=== PATIENT | female | born 1960 | race Caucasian/White ===

== ENCOUNTER 2020-12-12 10:53 | Emergency (ER) | payer OTHER ==
[~2020-12-12 10:53] MED LIST: ADMELOG SO100 UNIT/1 SC; ADMELOG SO100 UNIT/1 SQ; ALDACTONE 25MG25 MG PO; ALL DAY ALLERGY10 M2 PO; ASPIR 8181 MG PO; ASPIRIN CHEWABL81 MG PO; ASPIRIN81 MG PO; BASAGLAR K100 UNIT/1 SQ; BASAGLAR SQ; BUMETANIDE1 MG PO; CEFPODOXIME PR100 MG PO; CELEXA 20MG TAB20 MG PO; D3-20002000 UNIT PO; DYAZIDE 37.5-21 EACH PO; FARXIGA10 MG PO; GLIMEPIRIDE4 MG PO; GLUCOPHAGE 500500 MG PO; GLUCOPHAGE1000 MG PO; IMDUR ER TAB 3030 MG PO; IMDUR ER TAB 6060 MG PO; JARDIANCE10 MG PO; LEVOCETIRIZINE D5 MG PO; LIPITOR TAB 2020 MG PO; LISINOPRIL5 MG PO; MAXZIDE 37.5 M1 EACH PO; METOPROLOL SUC100 MG PO; NEURONTIN600 MG PO; NITROGLYCERIN0.4 MG SL; NORVASC 5 MG TAB5 MG PO; OMEPRAZOLE40 MG PO; PLAVIX75 MG PO; PRINIVIL5 MG PO; RANEXA500 MG PO; RANITIDINE HCL300 M1 PO; SINGULAIR10 MG PO; STEGLATRO5 MG PO; TOPROL XL50 MG PO; TRULICITY0.75 MG/0. SQ; ZOFRAN4 MG PO
== END 2020-12-12 16:30 | disposition home or self-care (01) ==
LOC: ER1 10:53
DX: S09.90XA Unspecified injury of head, initial encounter (principal); M54.5 Low back pain; M25.532 Pain in left wrist; M79.641 Pain in right hand; M79.642 Pain in left hand; E11.9 Type 2 diabetes mellitus without complications; I10 Essential (primary) hypertension; I25.10 Atherosclerotic heart disease of native coronary artery without angina pectoris; E78.00 Pure hypercholesterolemia, unspecified; Z95.1 Presence of aortocoronary bypass graft; Z79.82 Long term (current) use of aspirin; Z79.899 Other long term (current) drug therapy; W01.0XXA Fall on same level from slipping, tripping and stumbling without subsequent striking against object, initial encounter; Y92.009 Unspecified place in unspecified non-institutional (private) residence as the place of occurrence of the external cause
CPT/HCPCS: 70450; 71045; 72131; 73110; 73130; 99284

== ENCOUNTER 2021-01-20 00:48 | Observation (INO) | payer OTHER ==
[~2021-01-20] VITALS: Ht 149.9 cm; Wt 83.5 kg
[2021-01-20 01:11] LABS: HEMOGLOBIN 12.6 gm/dl (12.3-15.3); RED BLOOD COUNT 3.86 M/UL (4.00-5.10); WHITE BLOOD COUNT 5.2 K/UL (4.5-11.0)
--- NOTE | 2021-01-20 03:28 | NUR ---
PATIENT DOES NOT KNOW HER HOME MEDICATIONS OR BROUGHT A LIST WITH HER. PATIENT STATES HER DAUGHTER IS BRINGING MEDS IN THE AM.
[2021-01-20] MEDS ORDERED: NAMENDA 5 MG TAB5 MG PO (12:10)
[2021-01-20] MEDS ORDERED: MACROBID 100 M100 MG PO (12:11)
[2021-01-20] MEDS ORDERED: ATORVASTATIN CA40 MG PO (12:11)
[2021-01-20] MEDS ORDERED: PLAVIX75 MG PO (12:12)
[2021-01-20] MEDS ORDERED: ASPIRIN EC81 MG PO (12:12)
[2021-01-20] MEDS ORDERED: FUROSEMIDE20 MG PO (12:13)
[2021-01-20] MEDS ORDERED: FARXIGA10 MG PO (12:13)
[2021-01-20] MEDS ORDERED: ISORDIL TAB 3030 MG PO (12:14)
[2021-01-20] MEDS ORDERED: ENULOSE10 GM/15 M PO (12:15)
[2021-01-20] MEDS ORDERED: LISINOPRIL5 MG PO (12:15)
[2021-01-20] MEDS ORDERED: OMEPRAZOLE40 MG PO (12:16)
[2021-01-20] MEDS ORDERED: SPIRONOLACTONE25 MG PO (12:17)
[2021-01-20] MEDS ORDERED: OZEMPIC1 MG/0.75 SQ (12:18)
[2021-01-20] MEDS ORDERED: GABAPENTIN600 MG PO (12:19)
[2021-01-20] MEDS ORDERED: BASAGLAR K100 UNIT/1 SC (12:19)
[2021-01-20] MEDS ORDERED: ADMELOG SO100 UNIT/1 SC (12:20)
== END 2021-01-20 19:40 | disposition home or self-care (01) ==
LOC: ER1 00:48 → CDU 02:09 → MED SURG 4 02:09
PROVIDERS: Physician Assistant Medical; ADMIT Internal Medicine Infectious Disease
DX: R07.89 Other chest pain (principal); I25.10 Atherosclerotic heart disease of native coronary artery without angina pectoris; E11.65 Type 2 diabetes mellitus with hyperglycemia; I11.9 Hypertensive heart disease without heart failure; I44.7 Left bundle-branch block, unspecified; E11.40 Type 2 diabetes mellitus with diabetic neuropathy, unspecified; E78.5 Hyperlipidemia, unspecified; E11.41 Type 2 diabetes mellitus with diabetic mononeuropathy; K76.0 Fatty (change of) liver, not elsewhere classified; K74.60 Unspecified cirrhosis of liver; E66.9 Obesity, unspecified; Z68.37 Body mass index [BMI] 37.0-37.9, adult; Z95.1 Presence of aortocoronary bypass graft; Z79.4 Long term (current) use of insulin; Z79.02 Long term (current) use of antithrombotics/antiplatelets; Z79.82 Long term (current) use of aspirin; Z79.899 Other long term (current) drug therapy; Z20.822 Contact with and (suspected) exposure to COVID-19
CPT/HCPCS: 36415; 71045; 80053; 80061; 82550; 82553; 82962; 83036; 83874; 83880; 84439; 84443; 84484; 85025; 85610; 93005; 99285; G0378; J2270; J2405; U0002

== ENCOUNTER 2021-05-22 17:23 | Emergency (ER) | payer OTHER ==
[~2021-05-22 17:23] MED LIST changes: +ASPIRIN EC81 MG PO; +ATORVASTATIN CA40 MG PO; +BASAGLAR K100 UNIT/1 SC; +ENULOSE10 GM/15 M PO; +FUROSEMIDE20 MG PO; +GABAPENTIN600 MG PO; +ISORDIL TAB 3030 MG PO; +MACROBID 100 M100 MG PO; +NAMENDA 5 MG TAB5 MG PO; +OZEMPIC1 MG/0.75 SQ; +SPIRONOLACTONE25 MG PO
[2021-05-22 19:12] LABS: HEMOGLOBIN 14.8 gm/dl (12.3-15.3); RED BLOOD COUNT 4.85 M/UL (4.00-5.10); WHITE BLOOD COUNT 4.9 K/UL (4.5-11.0)
[2021-05-22] MEDS ORDERED: DOXYCYCLINE HY100 MG PO (22:29)
[2021-05-22] MEDS ORDERED: DECADRON6 MG PO (22:29)
[2021-05-22] MEDS ORDERED: ZOFRAN ODT 4 MG4 MG PO (22:29)
== END 2021-05-23 00:44 | disposition home or self-care (01) ==
LOC: ER1 17:23
PROVIDERS: Physician Assistant Medical
DX: U07.1 COVID-19 (principal); J12.82 Pneumonia due to coronavirus disease 2019; E11.65 Type 2 diabetes mellitus with hyperglycemia; I44.7 Left bundle-branch block, unspecified; E11.9 Type 2 diabetes mellitus without complications; I10 Essential (primary) hypertension; Z23 Encounter for immunization; Z95.1 Presence of aortocoronary bypass graft
CPT/HCPCS: 36600; 71045; 80053; 81001; 82550; 82553; 82803; 82962; 83605; 83874; 84484; 85025; 87040; 93005; 96374; 96375; 99284; J1100; J2405; M0243; U0002

== ENCOUNTER 2021-05-27 19:45 | Emergency (ER) | payer OTHER ==
[~2021-05-27 19:45] MED LIST changes: +DECADRON6 MG PO; +DOXYCYCLINE HY100 MG PO; +ZOFRAN ODT 4 MG4 MG PO
[2021-05-27 21:27] LABS: HEMOGLOBIN 15.4 gm/dl (12.3-15.3); RED BLOOD COUNT 5.32 M/UL (4.00-5.10); WHITE BLOOD COUNT 6.6 K/UL (4.5-11.0)
[2021-05-27 21:44] LABS: BUN/CREATININE RATIO 36 (0-10)
[2021-05-28] MEDS ORDERED: VENTOLIN HFA 66.7 GM INH (02:36)
== END 2021-05-28 02:38 | disposition home or self-care (01) ==
LOC: ER1 19:45
PROVIDERS: Physician Assistant
DX: U07.1 COVID-19 (principal); I25.2 Old myocardial infarction; E11.9 Type 2 diabetes mellitus without complications; I10 Essential (primary) hypertension; Z95.1 Presence of aortocoronary bypass graft
CPT/HCPCS: 71045; 80053; 85025; 99285

== ENCOUNTER 2021-09-13 00:04 | Inpatient (IN) | payer OTHER ==
[~2021-09-13] VITALS: Ht 157.5 cm; Wt 83.5 kg
[~2021-09-13 00:04] MED LIST changes: +VENTOLIN HFA 66.7 GM INH
[2021-09-13 01:24] LABS: HEMOGLOBIN 14.6 gm/dl (12.3-15.3); RED BLOOD COUNT 4.59 M/UL (4.00-5.10); WHITE BLOOD COUNT 9.1 K/UL (4.5-11.0)
[2021-09-13 01:46] LABS: BUN/CREATININE RATIO 38 (0-10)
[2021-09-14 05:52] LABS: HEMOGLOBIN 13.1 gm/dl (12.3-15.3); RED BLOOD COUNT 4.15 M/UL (4.00-5.10)
[2021-09-14 05:53] LABS: WHITE BLOOD COUNT 4.2 K/UL (4.5-11.0)
[2021-09-14 06:28] LABS: BUN/CREATININE RATIO 38 (0-10)
[2021-09-15 06:16] LABS: HEMOGLOBIN 13.8 gm/dl (12.3-15.3); RED BLOOD COUNT 4.4 M/UL (4.00-5.10)
[2021-09-15 06:36] LABS: BUN/CREATININE RATIO 34 (0-10)
[2021-09-15] MEDS ORDERED: AUGMENTIN 875-1 EACH PO (09:59)
[2021-09-15] MEDS ORDERED: LOPRESSOR 25 MG25 MG PO (10:50)
== END 2021-09-15 11:41 | disposition home or self-care (01) | DRG 872 ==
LOC: ER1 00:04 → M/S 02:46 → CDU 02:46 → M/S 04:18
PROVIDERS: Physician Assistant; Physician Assistant Medical; ADMIT Internal Medicine
DX: A41.9 Sepsis, unspecified organism (principal); N17.9 Acute kidney failure, unspecified; Z20.822 Contact with and (suspected) exposure to COVID-19; N30.00 Acute cystitis without hematuria; K76.6 Portal hypertension; E87.2 Acidosis; I42.9 Cardiomyopathy, unspecified; R65.20 Severe sepsis without septic shock; I95.9 Hypotension, unspecified; K74.60 Unspecified cirrhosis of liver; E86.0 Dehydration; I25.10 Atherosclerotic heart disease of native coronary artery without angina pectoris; I10 Essential (primary) hypertension; I44.7 Left bundle-branch block, unspecified; E11.65 Type 2 diabetes mellitus with hyperglycemia; E78.5 Hyperlipidemia, unspecified; F03.90 Unspecified dementia, unspecified severity, without behavioral disturbance, psychotic disturbance, mood disturbance, and anxiety; I73.9 Peripheral vascular disease, unspecified; K75.81 Nonalcoholic steatohepatitis (NASH); E66.01 Morbid (severe) obesity due to excess calories; D69.6 Thrombocytopenia, unspecified; Z95.1 Presence of aortocoronary bypass graft; Z98.891 History of uterine scar from previous surgery; Z98.890 Other specified postprocedural states; Z79.4 Long term (current) use of insulin; Z68.33 Body mass index [BMI] 33.0-33.9, adult; I25.2 Old myocardial infarction; Z95.5 Presence of coronary angioplasty implant and graft
CPT/HCPCS: 36415; 71275; 80048; 80053; 81001; 82550; 82553; 82962; 83605; 83874; 83880; 84484; 85025; 85027; 85049; 85610; 85730; 86850; 86900; 86901; 87040; 87086; 93005; 99285; J0295; J0696; J1650; J7030; Q9967; U0002

== ENCOUNTER → 2021-11-01 | Outpatient (CLI) | payer OTHER ==
[~2021-11-01] MED LIST changes: +AUGMENTIN 875-1 EACH PO; +LOPRESSOR 25 MG25 MG PO
== END ==
LOC: US 09:29
DX: K74.60 Unspecified cirrhosis of liver (principal)
CPT/HCPCS: 76705

== ENCOUNTER 2022-05-11 23:10 | Emergency (ER) | payer OTHER ==
[2022-05-11 23:43] LABS: HEMOGLOBIN 14.6 gm/dl (12.3-15.3); RED BLOOD COUNT 4.44 M/UL (4.00-5.10); WHITE BLOOD COUNT 5.8 K/UL (4.5-11.0)
[2022-05-12 00:07] LABS: BUN/CREATININE RATIO 37 (0-10)
[2022-05-12] MEDS ORDERED: VIBRAMYCIN100 MG PO (02:09)
[2022-05-12] MEDS ORDERED: PREDNISONE 10 M10 MG PO (02:09)
[2022-05-12] MEDS ORDERED: AMOX TR-K CLV1 EAC4 PO (02:09)
== END 2022-05-12 02:23 | disposition home or self-care (01) ==
LOC: ER1 23:10
PROVIDERS: Physician Assistant
DX: U07.1 COVID-19 (principal); J12.82 Pneumonia due to coronavirus disease 2019; R04.2 Hemoptysis; I25.10 Atherosclerotic heart disease of native coronary artery without angina pectoris; E10.9 Type 1 diabetes mellitus without complications; I11.9 Hypertensive heart disease without heart failure; E78.5 Hyperlipidemia, unspecified; Z95.1 Presence of aortocoronary bypass graft
CPT/HCPCS: 71045; 80053; 82550; 82553; 83605; 83880; 84484; 85025; 85379; 93005; 94664; 96374; 99285; J1100; Q9967

== ENCOUNTER 2022-05-12 16:01 | Emergency (ER) | payer OTHER ==
[~2022-05-12 16:01] MED LIST changes: +AMOX TR-K CLV1 EAC4 PO; +PREDNISONE 10 M10 MG PO; +VIBRAMYCIN100 MG PO
[2022-05-12 16:53] LABS: HEMOGLOBIN 13.9 gm/dl (12.3-15.3); RED BLOOD COUNT 4.23 M/UL (4.00-5.10)
[2022-05-12 16:54] LABS: WHITE BLOOD COUNT 3.8 K/UL (4.5-11.0)
== END 2022-05-12 19:00 | disposition home or self-care (01) ==
LOC: ER1 16:01
PROVIDERS: Family Medicine
DX: U07.1 COVID-19 (principal); J12.82 Pneumonia due to coronavirus disease 2019
CPT/HCPCS: 80053; 82550; 82553; 84484; 85025; 85379; 93005; 99284; Q9967

== ENCOUNTER 2022-05-31 17:11 | Inpatient (IN) | payer OTHER ==
[~2022-05-31] VITALS: Ht 157.5 cm; Wt 83.5 kg
[~2022-05-31 17:11] MED LIST changes: +OZEMPIC1 MG/0.71 SQ; -OZEMPIC1 MG/0.75 SQ
[2022-05-31 17:51] LABS: HEMOGLOBIN 13.6 gm/dl (12.3-15.3); RED BLOOD COUNT 4.21 M/UL (4.00-5.10)
[2022-06-01 02:32] LABS: HEMOGLOBIN 12.3 gm/dl (12.3-15.3); RED BLOOD COUNT 3.86 M/UL (4.00-5.10)
[2022-06-01 02:33] LABS: WHITE BLOOD COUNT 4.3 K/UL (4.5-11.0)
[2022-06-01 02:46] LABS: BUN/CREATININE RATIO 44 (0-10)
[2022-06-01] MEDS ORDERED: CETIRIZINE HCL10 MG PO (10:31)
[2022-06-01] MEDS ORDERED: FLONASE 0.05% N16 GM (10:41)
[2022-06-01] MEDS ORDERED: POTASSIUM CHLO10 ME1 PO (10:44)
[2022-06-01] MEDS ORDERED: HUMALOG100 UNIT/3 SQ (10:47)
[2022-06-01] MEDS ORDERED: LEVEMIR FL100 UNIT/1 SQ (10:49)
[2022-06-01 14:50] LABS: BUN/CREATININE RATIO 41 (0-10)
[2022-06-02 03:10] LABS: HEMOGLOBIN 12.5 gm/dl (12.3-15.3); RED BLOOD COUNT 3.92 M/UL (4.00-5.10); WHITE BLOOD COUNT 3.8 K/UL (4.5-11.0)
[2022-06-02 03:28] LABS: BUN/CREATININE RATIO 37 (0-10)
--- NOTE | 2022-06-02 05:48 | NUR ---
06/02/2022 @ 0435 - Patient rang call hubbard and simultaneously yelled "help". Multiple staff went into room to find patient on her knees in front of the bedside commode. When asked what happened, patient stated she stood up to wipe and fell. Patient complaining of bilateral knee pain. No other injuries noted. Patient assisted back to bed, bed alarm turned on. Fall risk precautions already in place prior to fall. Vital signs obtained 150/66, 95 pulse, 20 respirations, 96% on room air. [id number] - MD Brennan notified of fall, and of patient complaint. ordered bilateral knee xray. 1140 - Advisory Services Associate Mily notified.
[2022-06-03 02:26] LABS: HEMOGLOBIN 12.5 gm/dl (12.3-15.3); RED BLOOD COUNT 3.91 M/UL (4.00-5.10)
[2022-06-03 03:03] LABS: BUN/CREATININE RATIO 29 (0-10)
[2022-06-03] MEDS ORDERED: CHRONULAC20 GM/30 M PO (12:11)
[2022-06-03] MEDS ORDERED: CEFDINIR300 MG PO (12:11)
[2022-06-03] MEDS ORDERED: XIFAXAN 550 MG550 MG PO (12:11)
[2022-06-03] MEDS ORDERED: LEVEMIR FL100 UNIT/1 SQ (12:11)
[2022-06-03] MEDS ORDERED: OZEMPIC1 MG/0.71 SQ (12:11)
[2022-06-03] MEDS ORDERED: METFORMIN HCL1000 MG PO (12:15)
== END 2022-06-03 13:30 | disposition home or self-care (01) | DRG 871 ==
LOC: ER1 17:11 → CDU 20:51 → M/S 20:51
PROVIDERS: Internal Medicine; Physician Assistant; ADMIT Internal Medicine
DX: A41.9 Sepsis, unspecified organism (principal); G93.41 Metabolic encephalopathy; N39.0 Urinary tract infection, site not specified; Z20.822 Contact with and (suspected) exposure to COVID-19; K72.90 Hepatic failure, unspecified without coma; K74.60 Unspecified cirrhosis of liver; E78.5 Hyperlipidemia, unspecified; Z96.698 Presence of other orthopedic joint implants; R65.20 Severe sepsis without septic shock; I44.7 Left bundle-branch block, unspecified; K76.0 Fatty (change of) liver, not elsewhere classified; E86.0 Dehydration; I10 Essential (primary) hypertension; E11.65 Type 2 diabetes mellitus with hyperglycemia; I25.10 Atherosclerotic heart disease of native coronary artery without angina pectoris; Z95.1 Presence of aortocoronary bypass graft; Z79.4 Long term (current) use of insulin; Z87.440 Personal history of urinary (tract) infections; Z98.891 History of uterine scar from previous surgery; Z82.49 Family history of ischemic heart disease and other diseases of the circulatory system
CPT/HCPCS: 0240U; 36415; 36600; 70450; 71045; 73560; 76705; 80048; 80053; 81001; 82140; 82533; 82550; 82553; 82803; 82962; 83036; 83605; 83735; 83880; 84100; 84439; 84443; 84484; 85025; 85610; 85652; 86140; 87040; 87086; 93005; 96374; 96375; 97116-GP-CQ; 97161; 97165; 99285; C9113; J0696; J1650; J2405

== ENCOUNTER → 2022-07-03 | Outpatient (CLI) | payer OTHER ==
[~2022-07-03] MED LIST changes: +CEFDINIR300 MG PO; +CETIRIZINE HCL10 MG PO; +CHRONULAC20 GM/30 M PO; +FLONASE 0.05% N16 GM; +HUMALOG100 UNIT/3 SQ; +LEVEMIR FL100 UNIT/1 SQ; +METFORMIN HCL1000 MG PO; +POTASSIUM CHLO10 ME1 PO; +XIFAXAN 550 MG550 MG PO
== END ==
LOC: RAD 17:34
DX: M25.511 Pain in right shoulder (principal)
CPT/HCPCS: 73030